=== PATIENT | male | born 1960 | race Caucasian/White ===

== ENCOUNTER 2022-04-02 08:46 | Day surgery (SDC) | payer OTHER, SELFPAY ==
[2022-04-02] MEDS: TETRACAINE HCL 0.5% OPHTH SOLN 4 ML BTL 1 DROP AFFCTD EYE ×3 (09:10→09:20)
[2022-04-02] MEDS: OFLOXACIN 0.3% OPHTH SOLN 5 ML BTL 1 DROP AFFCTD EYE (09:10)
[2022-04-02 09:13] VITALS: BP 169/83; PULSE 70; RESP 18; TEMP 37.3; O2SAT 100; BMI 31.4
--- NOTE | 2022-04-02 09:22 | P.PNAN_ITS ---
Anes - Initial Pre Proc Eval Procedure: Operation Date: 04/02/22 10:00 Proposed Procedures p Cataract Extraction with Lens Implant-Left Eye - Kaden Tamayo MD Date/Time: 04/02/22 09:22 Surgeon: Kaden Tamayo MD Pre Op Diagnosis: Cataract Left Eye Patient Data Age: 61 Gender: M Height: 1.85 m Weight: 108 kg Last Vital Signs Temp 37.3 C 04/02/22 09:13 Pulse 70 04/02/22 09:13 Resp 18 04/02/22 09:13 BP 169/83 H 04/02/22 09:13 Pulse Ox 100 04/02/22 09:13 O2 Del Method Room Air 04/02/22 09:13 Allergies Allergy/AdvReac Type Severity Reaction Status Date / Time No Known Allergies Allergy Verified 04/02/22 09:12 Home Medications Medication Instructions Recorded Confirmed Type diltiazem HCl 300 mg 300 mg PO DAILY 04/02/22 04/02/22 History capsule,extended release 24 hr lisinopril 40 mg tablet 403 mg PO DAILY 04/02/22 04/02/22 History magnesium oxide 400 mg (241.3 mg 400 mg PO DAILY 04/02/22 04/02/22 History magnesium) tablet rivaroxaban 20 mg tablet (Xarelto) 20 mg PO DAILY 04/02/22 04/02/22 History Patient hx anesthesia problems: none Family hx anesthesia problems: none Results Review: All pre-operative results and documents have been reviewed as part of the pre- operative evaluation. PMFSH Past Medical History Medical History Afib Hypertension Social History Social History Smoking status: Never smoker Alcohol intake: current Alcohol use details: rarely Substance use: never Living arrangements: alone Spiritual care concerns: No Anes - Eval Final PreProcedure Day of Procedure 04/02/22 09:22 Patient weight: obese Heart: regular rate and rhythm Lungs: clear to auscultation Airway: Mallampati scale class II Neurological: alert and oriented Last oral intake: >/= 8 hours ASA classification: III Emergent: no Anesthetic plan: proceed Anesthesia type and monitoring: monitored anesthesia care and standard monitoring Results Review: All pre-operative results and documents have been reviewed as part of the pre- operative evaluation. Informed Consent: The patient's anesthetic plan and its attendant risks and benefits were discussed with the patient/family/POA. Questions were solicited and answers provided to the satisfaction of the patient/family/POA.
[2022-04-02] MEDS: LIDOCAINE HCL 1% PF INJ 5 ML VIAL 1 ML INTRAOCULA (10:28)
[2022-04-02] MEDS: LIDOCAINE HCL 2% JELLY 5 ML TUBE 1 APPLIC AFFCTD EYE (10:28)
[2022-04-02] MEDS: HOME MEDICATION 1 EACH AFFCTD EYE (10:43)
[2022-04-02] MEDS: NEOMYCIN/POLYMYXIN/DEXAMETH OP OINT 3.5 GM TUBE 1 APPLIC AFFCTD EYE (10:43)
[2022-04-02 10:50] VITALS: BP 126/79; PULSE 68; RESP 16; O2SAT 97
[2022-04-02] MEDS: acetaZOLAMIDE TAB 250 MG TABLET PO (10:53)
--- NOTE | 2022-04-02 11:08 | WPDANESPN ---
Anes - Prog Note Post-Op Date/Time: 04/02/22 11:08 Cardiovascular status: normal Respiratory status: normal Airway patency: baseline Mental status: baseline Post-Op hydration status: normal Vital Signs: Last Vital Signs Temp 37.3 C 04/02/22 09:13 Pulse 68 04/02/22 10:50 Resp 16 04/02/22 10:50 BP 126/79 04/02/22 10:50 Pulse Ox 97 04/02/22 10:50 O2 Del Method Room Air 04/02/22 10:50 Pain Score (VAS): 0 Patient Feedback: Patient satisfied with anesthetic care.
--- NOTE | 2022-04-02 11:26 | WPDHPUPDATE1 ---
History and Physical Update Update Date/Time: 04/02/22 11:26 History and Physical has been reviewed, including an updated exam of the patient. There are NO changes in the patient's condition. Risks, benefits, and alternatives have been discussed and questions answered. Patient agrees to proceed with procedure.
--- NOTE | 2022-04-02 12:23 | W.PM.PROC2 ---
Procedure Note - Detailed Date of Procedure 04/02/22 Pre-op Diagnosis 1) Cataract Left Eye 2) Miotic Pupillary cyst LEFT eye Post-op Diagnosis Same Procedure Performed Complex Cataract Extraction (by Phacoemulsification) and lntraocular Lens Implant Surgeon Kaden Tamayo MD Description of Procedure The eye was anesthetized with topical 0.75% bupivacaine. After intravenous sedation and placement of monitors, the patient was prepped and draped in the usual sterile manner. A lid speculum was placed. A paracentesis was made, and preservative free 1% lidocaine was instilled in the anterior chamber. The anterior chamber was then filled with Viscoat viscoelastic. A johnny keratome was used to create the wound and a malyugin ring was placed. Continuous tear anterior capsulotomy was performed. The lens was hydro dissected before being removed with phacoemulsification. The remaining lenticular cortex was removed with aspiration. The capsular bag was polished and filled with viscoelastic material. An intraocular lens was chosen, inspected, irrigated and placed within the capsular bag where it was seen to be centered and stable. The ring was removed and viscoelastic material was aspirated. The wound was closed and found to be watertight. Ciloxan drops were placed in the eye. The speculum was removed. A Vivas shield was applied. The patient tolerated the procedure well and left the operating room in satisfactory condition. Implants See chart Complications None Condition Stable Disposition Same day
== END 2022-04-02 11:16 | disposition home or self-care (01) ==
PROVIDERS: Visit Provider Student in an Organized Health Care Education/Training Program
PROC: (CPT 66983; principal; 2022-04-02 10:00)
DX: H25.12 Age-related nuclear cataract, left eye (principal)
CPT/HCPCS: 66982